=== PATIENT | female | born 1995 | race Caucasian/White ===

== ENCOUNTER 2023-08-08 22:28 | Emergency (ER) | payer OTHER ==
[2023-08-08 23:50] LABS: SARS-CoV-2 NAA Rapid Test Not Detected (NotDetected)
== END 2023-08-09 02:22 | disposition home or self-care (01) ==
LOC: ERS 22:28
DX: B34.9 Viral infection, unspecified (principal)
CPT/HCPCS: 87804; 99284; U0002